=== PATIENT | female | born 1965 | race Caucasian/White ===

== ENCOUNTER → 2016-07-23 | Outpatient (CLI) | payer OTHER ==
--- NOTE | 2016-07-23 16:36 | US ---
Ultrasound Pelvis Complete (Transabdominal and Endovaginal) Including Duplex/Doppler Imaging History: Postmenopausal bleeding, N95.0. Technique: Transabdominal and endovaginal ultrasound images were obtained. Endovaginal images obtain ed for better evaluation of the uterine myometrium and adnexa. Duplex/Doppler imaging of adnexa. Findings: Uterus measures 9 x 5 x 3 cm. Endometrial thickness is 5 mm. No definite uterine leiomyoma ta. Right ovary measures 3.8 x 2.6 x 2.6 cm. Left ovary measures 3.5 x 3.2 x 3 cm. Right ovarian complex cyst measuring 2.8 x 2.6 x 2.2 cm has fluid level and septation. Left ovarian dominant follicle or si mple cyst measuring 2.7 x 2.7 x 2.5 cm. No significant free fluid in the pelvis. Color Doppler flow t o both ovaries without torsion. Impression: 1. Right ovarian complex cyst measuring 2.8 x 2.6 x 2.2 cm with septation and fluid level, probably r epresenting hemorrhagic cyst, although follow up is recommended. 2. Left ovarian simple cyst or dominant follicle measuring 2.7 cm. 3. Recommend follow-up ultrasound in 8 to 12 weeks for the bilateral ovarian cystic lesions. 4. No uterine leiomyomata or abnormal endometrial thickening.
== END ==
LOC: BRMIMAGING 13:49
PROVIDERS: ATTEND Midwife
DX: N83.291 Other ovarian cyst, right side (principal); N83.292 Other ovarian cyst, left side
CPT/HCPCS: 76856-PO

== ENCOUNTER → 2016-09-16 | Outpatient (CLI) | payer OTHER | LOC: FIMAGING 14:03 | PROVIDERS: ATTEND Midwife | DX: Z87.42 Personal history of other diseases of the female genital tract (principal) ==

== ENCOUNTER → 2017-01-27 | Outpatient (CLI) | payer OTHER | LOC: FIMAGING 13:48 | PROVIDERS: ATTEND Internal Medicine | DX: Z12.31 Encounter for screening mammogram for malignant neoplasm of breast (principal) | CPT/HCPCS: G0202 ==

== ENCOUNTER → 2017-04-07 | Outpatient (CLI) | payer OTHER | LOC: FIMAGING 13:00 | PROVIDERS: ATTEND Midwife | DX: Z87.42 Personal history of other diseases of the female genital tract (principal) ==